=== PATIENT | female | born 1955 | race African-American/Black ===

== ENCOUNTER → 2021-05-25 | Day surgery (SDC) | payer OTHER ==
[~2021-05-25] VITALS: Ht 167.6 cm; Wt 93.0 kg
[~2021-05-25] MED LIST: ALLEGRA ALLERG180 MG PO; HCTZ25 MG PO; IBUPROFEN800 M1 PO; NORVASC5 MG PO; SYNTHROID125 MCG PO; TENORMIN50 MG PO; TRAZODONE 50MG50 MG PO
[2021-05-25 09:00] LABS: ALBUMIN 3.6 g/dL (3.4-5.0); BILIRUBIN - TOTAL 0.5 mg/dL (0.2-1.0); BUN/CREAT RATIO (CALC) 17.9 RATIO; CREATININE 0.78 mg/dL (0.51-0.95); GLOBULIN (CALCULATION) 3.6 g/dL; POTASSIUM 3.6 mmol/L (3.5-5.1); TOTAL PROTEIN 7.2 g/dL (6.4-8.2)
== END | disposition home or self-care (01) ==
LOC: FAS 08:01
PROVIDERS: Obstetrics & Gynecology
DX: N95.0 Postmenopausal bleeding (principal); N84.0 Polyp of corpus uteri; D25.9 Leiomyoma of uterus, unspecified; I10 Essential (primary) hypertension; J30.9 Allergic rhinitis, unspecified; E05.00 Thyrotoxicosis with diffuse goiter without thyrotoxic crisis or storm; Z79.899 Other long term (current) drug therapy; Z98.51 Tubal ligation status
CPT/HCPCS: 36415; 80053; 93005; J2250; J2704; J3010; J7120